=== PATIENT | female | born 1945 | race African-American/Black ===

== ENCOUNTER 2017-08-31 09:37 | Day surgery (SDC) | payer MEDICARE, MEDICAID ==
[~2017-08-31] VITALS: Ht 162.6 cm; Wt 84.4 kg
[~2017-08-31 09:37] MED LIST: ALBU05; AMLO10TA80; ASPI-986; ATEN-42; DEXL60CA3; DYR5; HYDR-3513; LOSA50TA20; MORP1DIS; POTA25TA13; ROSU20TA; TIOT18CA3
[2017-08-31] MEDS ORDERED: LEVO25TA7 PO (10:37)
[2017-08-31] MEDS ORDERED: DOCU-138 PO (10:37)
[2017-08-31] MEDS ORDERED: FURO20TA4 PO (10:37)
[2017-08-31] MEDS ORDERED: POTA20TA12 PO (10:37)
[2017-08-31] MEDS ORDERED: SUCR1TAB30 PO (10:37)
[2017-08-31] MEDS ORDERED: FENTANYL CITRATE/PF 50MCG/ML 2ML VIAL ONE (13:03)
[2017-08-31] MEDS ORDERED: IODIXANOL 320MG/ML 100 ML BOTTLE IV ONE (13:04)
[2017-08-31] MEDS ORDERED: LIDOCAINE HCL/PF 1% 10 MG/ML 5ML VIAL ONE (13:04)
[2017-08-31] MEDS ORDERED: MIDAZOLAM HCL 2 MG/2 ML VIAL ONE (13:04)
[2017-08-31] MEDS ORDERED: NITROGLYCERIN 50MCG/ML 10ML VIAL (CATH LAB) IV ONE (13:36)
[2017-08-31] MEDS ORDERED: NICARDIPINE 100MCG/ML 10ML VIAL (CATH LAB) IV ONE (13:36)
[2017-08-31] MEDS ORDERED: ATROPINE SULFATE 1MG/10ML SYR IV PRN (14:00)
[2017-08-31] MEDS ORDERED: ACETAMINOPHEN 325MG TABLET PO PRN (14:00)
[2017-08-31] MEDS ORDERED: MORPHINE SULFATE 4 MG/ML CPJ (NOT FOR IM USE) IV PRN (14:00)
[2017-08-31] MEDS ORDERED: ONDANSETRON HCL 4MG/2ML VIAL IV PRN (14:00)
== END 2017-08-31 18:06 | disposition home or self-care (01) ==
LOC: CCL 09:37
PROVIDERS: ATTEND Specialist
DX: I25.10 Atherosclerotic heart disease of native coronary artery without angina pectoris (principal); E78.5 Hyperlipidemia, unspecified; E03.9 Hypothyroidism, unspecified; J45.909 Unspecified asthma, uncomplicated; I10 Essential (primary) hypertension; Z88.0 Allergy status to penicillin; Z79.899 Other long term (current) drug therapy; Z87.891 Personal history of nicotine dependence; I49.1 Atrial premature depolarization
CPT/HCPCS: 93458; 99152; C1760; C1769; C1887; C1893; J1644; J2250; J3010; J3490; Q9967